=== PATIENT | female | born 1965 | race American Indian/Alaskan Native ===

== ENCOUNTER 2019-02-11 06:09 | Emergency (ER) | payer SELFPAY ==
[2019-02-11 06:25] VITALS: BP 166/106
[2019-02-11] MEDS ORDERED: ATIVAN PO ONE ×2 (07:10→07:11)
--- NOTE | 2019-02-11 07:15 | Emergency Department Report ---
ED Psych HPI - General Chief Complaint: Psych Stated Complaint: ANXIETY ATTACK/MH Time Seen by Provider: 02/11/19 07:10 Source: patient Mode of arrival: Ambulatory - History of Present Illness Initial Comments: 53-year-old female with history of bipolar disorder presents to ED with complaint of anxiety. Patient states she has an appointment with her physician tomorrow. Patient normally uses CBD oil and behavioral modifications to calm her anxiety, however she states it is not helping today and is requesting medication. Patient denies SI, HI, or hallucinations. MD Complaint: other (anxiety) -: days(s) (1) Associated Psychiatric Symptoms: none Quality: constant Improves With: none Worsens With: none Associated Symptoms: denies other symptoms Treatments Prior to Arrival: none - Related Data Allergies Allergy/AdvReac Type Severity Reaction Status Date / Time No Known Allergies Allergy Unverified 02/11/19 06:26 ED Review of Systems ROS: Stated complaint: ANXIETY ATTACK/MH Other details as noted in HPI Comment: All other systems reviewed and negative Psychiatric: anxiety. denies: depression, auditory hallucinations, visual hallucinations, homicidal thoughts, suicidal thoughts ED Past Medical Hx - Past Medical History Previous Medical History?: Yes Hx Psychiatric Treatment: Yes (Bipolar, Anxiety) - Social History Smoking Status: Current Every Day Smoker Substance Use Type: Marijuana ED Physical Exam - General Limitations: No Limitations General appearance: alert, in no apparent distress - Head Head exam: Present: atraumatic, normocephalic - Eye Eye exam: Present: normal appearance - ENT ENT exam: Present: mucous membranes moist - Neck Neck exam: Present: normal inspection - Respiratory Respiratory exam: Present: normal lung sounds bilaterally. Absent: respiratory distress - Cardiovascular Cardiovascular Exam: Present: normal rhythm, tachycardia - GI/Abdominal GI/Abdominal exam: Absent: distended - Extremities Exam Extremities exam: Present: normal inspection - Neurological Exam Neurological exam: Present: alert, oriented X3, CN II-XII intact. Absent: motor sensory deficit - Psychiatric Psychiatric exam: Present: anxious - Skin Skin exam: Present: warm, dry, intact, normal color ED Course Vital Signs 02/11/19 06:21 Temperature 98.3 F Pulse Rate 108 H Respiratory 18 Rate Blood Pressure 166/106 O2 Sat by Pulse 100 Oximetry Critical care attestation.: If time is entered above; I have spent that time in minutes in the direct care of this critically ill patient, excluding procedure time. ED Disposition Clinical Impression: Anxiety Disposition: DC-01 TO HOME OR SELFCARE Is pt being admited?: No Condition: Stable Instructions: Anxiety (ED) Referrals: [facility] [Outside] - as needed PRIMARY CARE, [Referring] - as needed Time of Disposition: 07:14
== END 2019-02-11 08:01 | disposition home or self-care (01) ==
LOC: ED 06:09
DX: F41.9 Anxiety disorder, unspecified (principal); F31.9 Bipolar disorder, unspecified; F17.200 Nicotine dependence, unspecified, uncomplicated; F12.10 Cannabis abuse, uncomplicated